=== PATIENT | female | born 1990 | race Caucasian/White ===

== ENCOUNTER 2018-05-10 08:05 | Emergency (ER) | payer MEDICAID ==
[~2018-05-10] VITALS: Ht 160 cm; Wt 67.6 kg
[2018-05-10 08:15] VITALS: Ht 160 cm; Wt 67.6 kg
[2018-05-10 10:20] LABS: CALCIUM 8.7 mg/dL (8.5-10.1); CARBON DIOXIDE 24.7 mmol/L (21-32); CHLORIDE SERUM 104 mmol/L (98-107); CREATININE SERUM 0.8 mg/dL (0.6-1.0); GFR1 > 60 mL/min; GLUCOSE SERUM 82 mg/dL (74-106); POTASSIUM SERUM 4.2 mmol/L (3.5-5.1); SODIUM SERUM 139 mmol/L (136-145)
[2018-05-10 10:21] LABS: BASOPHIL % 0.6 % (0-2); PLATELET COUNT 224 x10^3mcL (130-400); RED CELL DISTRIBUTION WIDTH 13.3 % (11.5-14.5)
[2018-05-10 10:25] LABS: ALBUMIN 3.7 g/dL (3.4-5.0); ALKALINE PHOSPHATASE 74 U/L (46-116); ALT/SGPT 18 U/L (14-59); AST/SGOT 20 U/L (15-37); TOTAL PROTEIN, SERUM 7.7 g/dL (6.4-8.2)
[2018-05-10 11:20] LABS: AMPHETAMINE QUAL UR NONE DETECTED (See below)
[2018-05-10 12:47] VITALS: BP 104/70
== END 2018-05-10 12:47 | disposition home or self-care (01) ==
LOC: ED 08:05
PROVIDERS: Emergency Medicine
DX: R07.89 Other chest pain (principal)
CPT/HCPCS: 85378; J1885; Q0092

== ENCOUNTER 2018-09-24 09:46 | Emergency (ER) | payer MEDICAID ==
[~2018-09-24] VITALS: Ht 160 cm; Wt 66.2 kg
[2018-09-24 09:52] VITALS: Ht 160 cm; Wt 66.2 kg
[2018-09-24 10:37] LABS: BASOPHIL % 0.1 % (0-2); PLATELET COUNT 207 x10^3mcL (130-400); RED CELL DISTRIBUTION WIDTH 12.2 % (11.5-14.5)
[2018-09-24 10:39] LABS: UA SPECIFIC GRAVITY >=1.030 (1.005-1.035); microscopic required? YES; urine erythrocyte TRACE (NEGATIVE)
[2018-09-24 10:59] LABS: CALCIUM 8.7 mg/dL (8.5-10.1); CARBON DIOXIDE 25.4 mmol/L (21-32); CHLORIDE SERUM 102 mmol/L (98-107); CREATININE SERUM 0.6 mg/dL (0.6-1.0); GFR1 > 60 mL/min; GLUCOSE SERUM 88 mg/dL (74-106); POTASSIUM SERUM 4.3 mmol/L (3.5-5.1); SODIUM SERUM 136 mmol/L (136-145)
[2018-09-24 11:03] LABS: ALBUMIN 3.1 g/dL (3.4-5.0); ALKALINE PHOSPHATASE 65 U/L (46-116); ALT/SGPT 15 U/L (14-59); AST/SGOT 10 U/L (15-37); BILIRUBIN TOTAL 0.4 mg/dL (0.20-1.00); TOTAL PROTEIN, SERUM 7.2 g/dL (6.4-8.2)
[2018-09-24 12:36] VITALS: BP 99/56
== END 2018-09-24 12:36 | disposition home or self-care (01) ==
LOC: ED 09:46
PROVIDERS: Emergency Medicine
DX: O21.9 Vomiting of pregnancy, unspecified (principal); O26.892 Other specified pregnancy related conditions, second trimester; R10.30 Lower abdominal pain, unspecified; R10.12 Left upper quadrant pain; R10.33 Periumbilical pain; R30.0 Dysuria; R39.15 Urgency of urination; Z3A.16 16 weeks gestation of pregnancy
CPT/HCPCS: J2405; J7030